=== PATIENT | male | born 1985 | race Hispanic/Latino ===

== ENCOUNTER 2018-07-21 23:53 | Emergency (ER) | payer SELFPAY ==
[2018-07-22 01:07] LABS: Absolute Lymphocytes (CBC) 2.7 K/uL (0.7-4.9); Absolute Monocytes 0.5 K/uL (0.1-1.3); Absolute Neutrophil 3.7 K/uL (1.8-8.0); Basophils % 0.6 % (0-1.3); Eosinophils % 2.6 % (0-4.4); Hematocrit 45.1 % (39.6-49.0); Lymphocytes % 37.8 % (15.3-44.8); MPV 9.9 fL (7.6-11.3); Monocytes % 7.5 % (3.3-12.3)
[2018-07-22] MEDS ORDERED: NA CHLORIDE 0.9% 500 ML ONE (01:12)
[2018-07-22 01:26] LABS: BUN Blood Urea Nitrogen 17 mg/dL (7-18); Bicarbonate 29 mmol/L (21-32); Glucose Level 91 mg/dL (74-106); Potassium 3.8 mmol/L (3.5-5.1); Sodium Level 141 mmol/L (136-145); Troponin (Emerg Dept Use Only) < 0.02 ng/mL (0.0-0.045)
--- NOTE | 2018-07-22 01:41 | EDPHYS ---
Physician Documentation [facility] Name: Jorden Woods Jr Age: 32 yrs Sex: Male : 1985 Arrival Date: 07/22/2018 Time: 00:06 Bed 2 Private MD: ED Physician Geovany Weldon HPI: 07/22 00:45 This 32 yrs old Male presents to ER via Ambulatory with complaints of rn Dizziness, Blurred Vision, Palpitations. 00:46 The patient presents with a history of heart racing. Context: The symptoms occur during rn sleep. Onset: The symptoms/episode began/occurred just prior to arrival. Duration: The patient or guardian reports a single episode, that lasted 20 minute(s). Modifying factors: The symptoms are aggravated by nothing. The symptoms are alleviated by nothing. Severity of symptoms: At their worst the symptoms were moderate in the emergency department the symptoms have resolved. The patient has not experienced similar symptoms in the past. The patient has not recently seen a physician. Denies drugs/ETOH, symptoms have resolved without intervention, never happened before.. Historical: - Allergies: 00:37 No Known Allergies; bb - Home Meds: 00:37 ferrous sulfate daily [Active]; simvastatin 20 mg Oral tab 1 tab once daily [Active]; bb - PMHx: 00:37 High Cholesterol; bb - PSHx: 00:37 None; bb - Immunization history:: Adult Immunizations unknown. - Social history:: Smoking status: Patient/guardian denies using tobacco. - Ebola Screening: : No symptoms or risks identified at this time. - Family history:: not pertinent. - Hospitalizations: : No recent hospitalization is reported. ROS: 00:46 Constitutional: Negative for fever, chills, and weight loss, Eyes: Negative for injury, rn pain, redness, and discharge, Neck: Negative for injury, pain, and swelling, Cardiovascular: Negative for chest pain, and edema, Respiratory: Negative for shortness of breath, cough, wheezing, and pleuritic chest pain, Abdomen/GI: Negative for abdominal pain, nausea, vomiting, diarrhea, and constipation, MS/Extremity: Negative for injury and deformity, Skin: Negative for injury, rash, and discoloration, Neuro: Negative for headache, weakness, and seizure. Exam: 00:46 Constitutional: This is a well developed, well nourished patient who is awake, alert, rn and in no acute distress. Head/Face: Normocephalic, atraumatic. Eyes: Pupils equal round and reactive to light, extra-ocular motions intact. Lids and lashes normal. Conjunctiva and sclera are non-icteric and not injected. Cornea within normal limits. Periorbital areas with no swelling, redness, or edema. ENT: MMM Neck: Trachea midline, no thyromegaly or masses palpated, and no cervical lymphadenopathy. Supple, full range of motion without nuchal rigidity, or vertebral point tenderness. No Meningismus. Cardiovascular: Regular rate and rhythm. No gallops, murmurs, or rubs. NO JVD. No pulse deficits. Respiratory: Lungs have equal breath sounds bilaterally, clear to auscultation. No increased work of breathing, no retractions or nasal flaring. Abdomen/GI: soft, non-tender Skin: Warm, dry with normal turgor. Normal color with no rashes, no lesions, and no evidence of cellulitis. MS/ Extremity: Pulses equal, no cyanosis. Neurovascular intact. Full, normal range of motion. Equal circumference. Neuro: Awake and alert, GCS 15, oriented to person, place, time, and situation. Cranial nerves II-XII grossly intact. Motor strength 5/5 in all extremities. Sensory grossly intact. Cerebellar exam normal. Normal gait. 01:21 ECG was reviewed by the Attending Physician. rn Vital Signs: 00:37 BP 122 / 93; Pulse 63; Resp 16 S; Temp 98.2(O); Pulse Ox 99% on R/A; Weight 98.88 kg bb (R); Height 6 ft. 1 in. (185.42 cm) (R); Pain 0/10; 01:17 BP 121 / 89; Pulse 60; Resp 14; Pulse Ox 100% on R/A; Pain 0/10; aa1 01:55 BP 130 / 83; Pulse 62; Resp 16; Temp 98.0; Pulse Ox 100% on R/A; Pain 0/10; aa1 00:37 Body Mass Index 28.76 (98.88 kg, 185.42 cm) bb MDM: 00:35 Patient medically screened. rn 01:40 Differential diagnosis: arrythmia, dehydration, stress disorder. Data reviewed: vital rn signs, nurses notes, lab test result(s), EKG, and as a result, I will discharge patient. Counseling: I had a detailed discussion with the patient and/or guardian regarding: the historical points, exam findings, and any diagnostic results supporting the discharge/admit diagnosis, lab results, radiology results, the need for outpatient follow up, to return to the emergency department if symptoms worsen or persist or if there are any questions or concerns that arise at home. Response to treatment: the patient's condition has returned to base line, the patient is now symptom free, and as a result, I will discharge patient. Special discussion: I discussed with the patient/guardian in detail that at this point there is no indication for admission to the hospital. It is understood, however, that if the symptoms persist or worsen the patient needs to return immediately for re-evaluation. Further emergent ED testing is not indicated at this point in time. I discussed with the patient/guardian in detail the need to arrange with the PCP or specialist further outpatient testing, HOlter. Based on the history and exam findings, there is no indication for further emergent testing or inpatient evaluation. 07/22 00:45 Order name: CBC with Diff rn 07/22 00:45 Order name: Basic Metabolic Panel rn 07/22 00:45 Order name: Troponin (emerg Dept Use Only) rn 07/22 01:18 Order name: CBC with Automated Diff; Complete Time: 01:40 EDAL 07/22 01:26 Order name: Basic Metabolic Panel; Complete Time: 01:40 EDAL 07/22 01:26 Order name: Troponin (Emerg Dept Use Only); Complete Time: 01:40 EDAL 07/22 00:36 Order name: EKG; Complete Time: 00:37 rn 07/22 00:36 Order name: EKG - Nurse/Tech; Complete Time: 01:10 rn 07/22 00:45 Order name: IV Start; Complete Time: 00:58 rn 07/22 00:46 Order name: Cardiac monitoring; Complete Time: 00:58 rn EC:21 Rate is 55 beats/min. Rhythm is regular. QRS [place] is Normal. [place] interval is normal. QRS rn interval is normal. QT interval is normal. No Q waves. T waves are Normal. No ST changes noted. Clinical impression: Sinus bradycardia. Interpreted by me. Reviewed by me. Administered Medications: 01:01 Drug: NS 0.9% 500 ml Route: IV; Rate: bolus; Site: right antecubital; aa1 01:55 Follow up: IV Status: Completed infusion; IV Intake: 500ml aa1 Disposition: 07/22/18 01:40 Discharged to Home. Impression: Palpitations. - Condition is Stable. - Discharge Instructions: Holter Monitoring, Palpitations. - Medication Reconciliation Form, Thank You Letter, Antibiotic Education, Prescription Opioid Use form. - Follow up: Karlos Gastelum; When: As needed; Reason: Recheck today's complaints, Re-evaluation by your physician. - Problem is new. - Symptoms are resolved. Signatures: Dispatcher [employer] EDMS Diann Thompson RN RN aa1 Dana Nair RN RN bb Geovany Weldon MD MD grinder operator external tool: (The following items were deleted from the chart) 01:58 01:40 07/22/2018 01:40 Discharged to Home. Impression: Palpitations. Condition is aa1 Stable. Discharge Instructions: Holter Monitoring, Palpitations. Forms are Medication Reconciliation Form, Thank You Letter, Antibiotic Education, Prescription Opioid Use. Follow up: Karlos Gastelum; When: As needed; Reason: Recheck today's complaints, Re-evaluation by your physician. Problem is new. Symptoms are resolved. mary kay
--- NOTE | 2018-07-22 01:41 | ER ---
Nurse's Notes [facility] Name: Jorden Woods Jr Age: 32 yrs Sex: Male : 1985 Arrival Date: 07/22/2018 Time: 00:06 Bed 2 Private MD: Diagnosis: Palpitations Presentation: 07/22 00:34 Presenting complaint: Patient states: he was in bed tonight and woke up feeling dizzy bb with palpitations and his vision was blurred for about 20 minutes but symptoms have resolved now. Transition of care: patient was not received from another setting of care. Onset of symptoms was July 22, 2018. Risk Assessment: Do you want to hurt yourself or someone else? Patient reports no desire to harm self or others. Initial Sepsis Screen: Does the patient meet any 2 criteria? No. Patient's initial sepsis screen is negative. Does the patient have a suspected source of infection? No. Patient's initial sepsis screen is negative. Care prior to arrival: None. 00:34 Method Of Arrival: Ambulatory bb 00:34 Acuity: BRITTANY 3 bb Historical: - Allergies: 00:37 No Known Allergies; bb - Home Meds: 00:37 ferrous sulfate daily [Active]; simvastatin 20 mg Oral tab 1 tab once daily [Active]; bb - PMHx: 00:37 High Cholesterol; bb - PSHx: 00:37 None; bb - Immunization history:: Adult Immunizations unknown. - Social history:: Smoking status: Patient/guardian denies using tobacco. - Ebola Screening: : No symptoms or risks identified at this time. - Family history:: not pertinent. - Hospitalizations: : No recent hospitalization is reported. Screenin:50 Abuse screen: Denies threats or abuse. Denies injuries from another. Nutritional aa1 screening: No deficits noted. Tuberculosis screening: No symptoms or risk factors identified. Fall Risk None identified. Assessment: 00:50 General: Appears in no apparent distress. comfortable, Behavior is calm, cooperative, aa1 appropriate for age. Pain: Denies pain. Neuro: Level of Consciousness is awake, alert, obeys commands, Oriented to person, place, time, situation, Moves all extremities. Full function Gait is steady, Speech is normal, Reports dizziness, EXHIBITS COORDINATOR which has since resolved. Cardiovascular: Reports palpitations, which resolved EXHIBITS COORDINATOR Denies chest pain, nausea, shortness of breath, Heart tones S1 S2 present Capillary refill < 3 seconds Clubbing of nail beds is absent JVD is absent Patient's skin is warm and dry. Rhythm is regular. Respiratory: Airway is patent Respiratory effort is even, unlabored, Respiratory pattern is regular, symmetrical. GI: No signs and/or symptoms were reported involving the gastrointestinal system. : No signs and/or symptoms were reported regarding the genitourinary system. EENT: No signs and/or symptoms were reported regarding the EENT system. Derm: Skin is intact, is healthy with good turgor, Skin is pink, warm \T\ dry. Musculoskeletal: Circulation, motion, and sensation intact. Capillary refill < 3 seconds. 01:55 Reassessment: Patient appears in no apparent distress at this time. Patient is alert, aa1 oriented x 3, equal unlabored respirations, skin warm/dry/pink. Discussed d/c \T\ f/u instructions with pt; denies questions or concerns at this time. Amb to lobby with steady gait. Patient denies pain at this time. Patient states feeling better. Vital Signs: 00:37 BP 122 / 93; Pulse 63; Resp 16 S; Temp 98.2(O); Pulse Ox 99% on R/A; Weight 98.88 kg bb (R); Height 6 ft. 1 in. (185.42 cm) (R); Pain 0/10; 01:17 BP 121 / 89; Pulse 60; Resp 14; Pulse Ox 100% on R/A; Pain 0/10; aa1 01:55 BP 130 / 83; Pulse 62; Resp 16; Temp 98.0; Pulse Ox 100% on R/A; Pain 0/10; aa1 00:37 Body Mass Index 28.76 (98.88 kg, 185.42 cm) bb ED Course: 00:06 Patient arrived in ED. es 00:35 Triage completed. bb 00:35 Geovany Weldon MD is Attending Physician. rn 00:37 Arm band placed on Patient placed in an exam room, on a stretcher, on pulse oximetry. bb 00:49 Diann Thompson, CECILIA is Primary Nurse. aa1 00:50 Patient has correct armband on for positive identification. Placed in gown. Bed in low aa1 position. Call light in reach. court recording monitor on. Pulse ox on. NIBP on. 00:55 Initial lab(s) drawn, by ED staff, sent to lab. Inserted saline lock: 22 gauge in right aa1 antecubital area, using aseptic technique. ,using aseptic technique. by Ammy Blood collected. 01:40 Karlos Gastelum MD is Referral Physician. rn 01:55 No provider procedures requiring assistance completed. IV discontinued, intact, aa1 bleeding controlled, No redness/swelling at site. Pressure dressing applied. Administered Medications: : Drug: NS 0.9% 500 ml Route: IV; Rate: bolus; Site: right antecubital; aa1 01:55 Follow up: IV Status: Completed infusion; IV Intake: 500ml aa1 Intake: :55 IV: 500ml; Total: 500ml. aa1 Outcome: :40 Discharge ordered by MD. rn 01:55 Discharged to home ambulatory. aa1 01:55 Condition: good 01:55 Discharge instructions given to patient, Instructed on discharge instructions, follow up and referral plans. Demonstrated understanding of instructions, follow-up care. 01:58 Patient left the ED. aa1 Signatures: Diann Thompson RN RN aa1 Maryjane Cheema Brenda, RN RN bb Geovany Weldon MD MD spring intern: (The following items were deleted from the chart) 02:03 02:03 Inserted saline lock: 22 gauge in right antecubital area, using aseptic aa1 technique. ,using aseptic technique. by Ammy Blood collected. aa1 02:03 02:03 Initial lab(s) drawn, by ED staff, sent to lab. aa1 aa1
--- NOTE | 2018-07-22 08:45 | EKG ---
Test Date: 2018-07-22 Test Time: 01:07:43 Other Sports Official: KERI MEASUREMENT RESULTS: Intervals: Rate: 55 AL: 156 QRSD: 86 QT: 400 QTc: 382 [place]: P: 19 AL: 156 QRS: 66 T: 62 INTERPRETIVE STATEMENTS: Sinus bradycardia Otherwise normal ECG No previous ECG available for comparison Electronically Signed On 07-22-18 08:44:31 CDT by Don De Luna
== END 2018-07-22 01:58 | disposition home or self-care (01) ==
LOC: ER 23:53
DX: R00.2 Palpitations (principal); E78.00 Pure hypercholesterolemia, unspecified
CPT/HCPCS: 36415; 80048; 84484; 85025; 93005; 96360; 99284